=== PATIENT | male | born 1930 | race Caucasian/White ===

== ENCOUNTER 2017-07-18 20:56 | Inpatient (IN) | payer MEDICARE ==
[~2017-07-18] VITALS: Ht 185.4 cm; Wt 59.9 kg
--- NOTE | 2017-07-18 21:40 | EKG ---
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
--- NOTE | 2017-07-18 21:43 | PHYS DOC ---
Adult General Chief Complaint Chief Complaint: PSYCH EVALUATION HPI HPI 86-year-old male custodial patient with a history of dementia now sent for medical clearance for psychiatric admission. Patient has been manifesting some behavioral difficulties including some aggressive behaviors and stealing items per staff Review of Systems Review of Systems Constitutional: Denies fever or chills [] Eyes: Denies change in visual acuity, redness, or eye pain [] HENT: Denies nasal congestion or sore throat [] Respiratory: Denies cough or shortness of breath [] Cardiovascular: No additional information not addressed in HPI [] GI: Denies abdominal pain, nausea, vomiting, bloody stools or diarrhea [] : Denies dysuria or hematuria [] Musculoskeletal: Denies back pain or joint pain [] Integument: Denies rash or skin lesions [] Neurologic: Denies headache, focal weakness or sensory changes [] Endocrine: Denies polyuria or polydipsia [] All other systems were reviewed and found to be within normal limits, except as documented in this note. Physical Exam Physical Exam Constitutional: Elderly male chronically weak appearing, no acute distress, non- toxic appearance. [] HENT: Normocephalic, atraumatic, bilateral external ears normal, oropharynx with very mild dryness, no oral exudates, nose normal. [] Eyes: PERRLA, EOMI, conjunctiva normal, no discharge. [] Neck: Normal range of motion, no tenderness, supple, no stridor. [] Cardiovascular:Heart rate regular rhythm, no murmur [] Lungs & Thorax: Bilateral breath sounds clear to auscultation [] Abdomen: Bowel sounds normal, soft, no tenderness, no masses, no pulsatile masses. [] Skin: Warm, dry, no erythema, no rash. [] Back: No tenderness, no CVA tenderness. [] Extremities: No tenderness, no cyanosis, no clubbing, ROM intact, no edema. [] Neurologic: Alert and oriented X 3, normal motor function, normal sensory function, no focal deficits noted. [] Psychologic: Affect normal, judgement normal, mood normal. [] EKG EKG EKG with normal sinus rhythm approximately 75 bpm. Left axis deviation. Nonspecific ST and T-wave findings. No STEMI. Interpreted by me[] Radiology/Procedures Radiology/Procedures [] Course & Med Decision Making Course & Med Decision Making Pertinent Labs and Imaging studies reviewed. (See chart for details) Patient here for medical clearance for psychiatric evaluation. Workup pending Patient is asymptomatic on reevaluation. He is very pleasant and polite. Workup unremarkable for prerenal azotemia with BUN/creatinine 37 and 1.1. Patient is asymptomatic and 2 L of normal saline were administered. He is willing to drink adequate by mouth fluids and feels he will have no problem doing so. No further workup indicated and patient is medically clear for psychiatric evaluation. [] Dragon Disclaimer Dragon Disclaimer This electronic medical record was generated, in whole or in part, using a voice recognition dictation system. Departure Departure: Impression: Primary Impression: Aggressive behavior of adult Additional Impressions: Prerenal azotemia Mild dehydration Disposition: ADMITTED INPATIENT Admitting Physician: Other Condition: GOOD Referrals: PCP,UNKNOWN (PCP) Problem Qualifiers JULIEN OLEARY MD July 18, 2017 21:43
[2017-07-18] MEDS ORDERED: MEMA10TA PO (21:48)
[2017-07-18] MEDS ORDERED: MELA5TAB PO (21:48)
[2017-07-18] MEDS ORDERED: CYAN10005 PO (21:48)
[2017-07-18] MEDS ORDERED: KRIL1CAP18 PO (21:48)
[2017-07-18] MEDS ORDERED: ASCO250T3 PO (21:48)
[2017-07-18] MEDS ORDERED: DONE10TA7 PO (21:48)
[2017-07-18] MEDS ORDERED: CALC-30 PO (21:48)
[2017-07-18 22:00] LABS: BASO % 1 % (0-3); EOS # 0.1 x10^3/uL (0.0-0.7); EOS % 3 % (0-3); HEMATOCRIT 42.3 % (39.0-53.0); HEMOGLOBIN 14.3 g/dL (13.0-17.5); LYMPH # 0.8 x10^3/uL (1.0-4.8); LYMPH % 16 % (24-48); MEAN CORPUSCULAR HEMOGLOBIN 32 pg (25-35); MEAN CORPUSCULAR HGB CONC 34 g/dL (31-37); MEAN CORPUSCULAR VOLUME 95 fL (79-100); MONO # 0.5 x10^3/uL (0.0-1.1); MONO % 10 % (0-9); NEUT # 3.6 x10^3uL (1.8-7.7); NEUT % 71 % (31-73); PLATELET COUNT 193 x10^3/uL (140-400); RED BLOOD COUNT 4.43 x10^6/uL (4.30-5.70); RED CELL DISTRIBUTION WIDTH 14.4 % (11.5-14.5)
[2017-07-18 22:09] LABS: CALCIUM 8.7 mg/dL (8.5-10.1); CREATININE 1.1 mg/dL (0.7-1.3); GFR 63.2; POTASSIUM 3.9 mmol/L (3.5-5.1)
[2017-07-18 22:36] LABS: BACTERIA,URINE 0 /HPF (0-FEW); BILIRUBIN,URINE NEG (NEG); CLARITY,URINE HAZY; COLOR,URINE YELLOW; GLUCOSE,URINE 100 mg/dL (NEG); NITRITE,URINE NEG (NEG); RBC,URINE OCC /HPF (0-2); SQUAMOUS EPITHELIAL CELL,UR FEW /LPF; UROBILINOGEN,URINE 0.2 mg/dL (0.2 mg/dL)
[2017-07-18 22:37] LABS: SPERM,URINE PRESENT /HPF
[2017-07-18] MEDS ORDERED: IV NORMAL SALINE 1,000ML 1,000 ML IV ONE (23:30)
[2017-07-19] MEDS ORDERED: IV NORMAL SALINE 1,000ML 1,000 ML IV ONE (00:15)
[2017-07-19] MEDS ORDERED: ACETAMINOPHEN 325 MG TABLET PO PRN (01:45)
[2017-07-19] MEDS ORDERED: MAG HYDROX/AL HYDROX/SIMETH 30 ML ORAL.SUSP PO PRN (01:45)
[2017-07-19] MEDS ORDERED: MAGNESIUM HYDROXIDE 2,400 MG/30 ML ORAL.SUSP. PO PRN (01:45)
[2017-07-19] MEDS ORDERED: METHYL SALICYLATE/MENTHOL TOPICAL OINTMENT 29GM TUBE. TP PRN (01:45)
[2017-07-19 02:02] VITALS: BP 123/72
[2017-07-19 02:02] LABS: TOTAL BILIRUBIN 0.9 mg/dL (0.2-1.0)
[2017-07-19 02:15] LABS: ALBUMIN 3.3 g/dL (3.4-5.0); DIRECT BILIRUBIN 0.2 mg/dL (0.0-0.2); MAGNESIUM 1.8 mg/dL (1.8-2.4); TOTAL PROTEIN 6.3 g/dL (6.4-8.2)
[2017-07-19 06:15] VITALS: BP 114/70
[2017-07-19] MEDS: CYANOCOBALAMIN (VITAMIN B-12) 1,000 MCG TABLET. PO SCH (08:35)
[2017-07-19] MEDS: CALCIUM CARB/VIT D3 500/200 TABLET PO SCH (08:35)
[2017-07-19] MEDS: ASCORBIC ACID 500 MG TABLET PO SCH (08:35)
[2017-07-19] MEDS: OMEGA-3 FATTY ACIDS/FISH OIL 1,000 MG CAPSULE. PO SCH (08:35)
[2017-07-19] MEDS: MEMANTINE 10 MG TABLET. PO SCH ×2 (08:35→20:19)
[2017-07-19 14:09] LABS: THYROID STIM HORMONE (TSH) 3.069 uIU/mL (0.358-3.740)
[2017-07-19 16:28] VITALS: BP 126/65
--- NOTE | 2017-07-19 19:19 | HP ---
ADMIT DATE: 07/19/2017 This note covers the elements not covered in my initial note 07/19/2017. SUBJECTIVE: I met with the patient evening of 07/19/2017. Previously discussed with the nursing staff on several occasions to gather referral information from [facility] in [place]. IDENTIFYING DATA: After the patient was getting more confused, agitated, having verbal aggression, attempting to hit people with his cane, stealing from others. He was having sleep and appetite changes, and had failed outpatient psychiatric interventions resulting in this referral. CHIEF COMPLAINT: "I do not remember the name of the [facility]. We only have one at one time. 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 More recently, he has been getting increasingly confused, forgetful, anxious, restless, minimizes being depressed, but mood lability has been significant. He has had sleep and appetite changes. No active suicidal or homicidal ideation, but he has been aggressive as noted above and paranoid. No clear history of bipolar disorder. PAST PSYCHIATRIC HISTORY: As above. MEDICAL HISTORY: Dehydration, B12 deficiency. DRUG ALLERGIES: PENICILLIN. CURRENT PSYCHOTROPICS: Aricept 10 mg a day, melatonin 5 mg at bedtime, and Namenda 10 mg b.i.d. FAMILY HISTORY: Noncontributory. SOCIAL HISTORY: The patient lives at the [facility] in [place]. No alcohol or drug abuse, physical, sexual or elder abuse history is noted. He is not known to be a perpetrator. Reaction to hospitalization, the patient accepting of this. ASSETS: Supportive environment at the [facility]. REVIEW OF SYSTEMS: No CV, , pulmonary, eye, ENT system symptoms on review. Reliability somewhat poor. MENTAL STATUS EXAMINATION: The patient is oriented to himself and situation. He knew it was 07/19/2017. He knew he was in [place]. He was able to do only one step on serial 7's. Attention span short, quite anxious. Speech coherent, rapid at times. Abstraction fair, computation as noted is poor. He is somewhat dysphoric, anxious. No active suicidal or homicidal ideation. Attention span is short. IMPRESSION: Major depressive disorder; anxiety disorder, unspecified, mild cognitive impairment versus major neurocognitive disorder, early vascular with depression. Rest as above. PLAN: Admit to geropsychiatry unit at [facility]. I will see the patient daily individually from a psychiatric standpoint, medical followup per Dr. Rojo/Dr. Ozuna. We will start Zoloft 25 mg a day. Adjust gradually. Estimated length of stay 10 to 12 days. Return back to [facility] at discharge. WILLOW SHETTY MD DR: TANIYA/david JOB#: [id number] / [id number]
[2017-07-19 20:10] LABS: T3 TOTAL 79 ng/dL (71-180); THYROXINE 6.3 ug/dL (4.5-12.0)
--- NOTE | 2017-07-19 20:14 | PDOC ---
Exam Note: Zafar Note: Please also refer to the separate dictated note~for this date of service dictated separately.~Patient seen individually. Discussed the patient with Nursing staff reviewed the chart.~Reviewed interim history and current functioning. Reviewed vital signs,~Labs/ Radiology~and current medications noted below. Continue current treatment with the changes noted in the dictated addendum note Assessment: Vital Signs: Vital Signs Date Time Temp Pulse Resp B/P (MAP) Pulse Ox O2 Delivery O2 Flow Rate FiO2 07/19/17 16:28 97.7 76 22 126/65 (85) 96 07/19/17 02:02 Room Air I&O Intake and Output 07/19/17 07:00 Intake Total 1000 ml Balance 1000 ml IV Total 1000 ml # Voids 1 Labs: Laboratory Tests Test 07/18/17 21:25 White Blood Count 5.0 x10^3/uL (4.0-11.0) Red Blood Count 4.43 x10^6/uL (4.30-5.70) Hemoglobin 14.3 g/dL (13.0-17.5) Hematocrit 42.3 % (39.0-53.0) Mean Corpuscular Volume 95 fL (79-100) Mean Corpuscular Hemoglobin 32 pg (25-35) Mean Corpuscular Hemoglobin Concent 34 g/dL (31-37) Red Cell Distribution Width 14.4 % (11.5-14.5) Platelet Count 193 x10^3/uL (140-400) Neutrophils (%) (Auto) 71 % (31-73) Lymphocytes (%) (Auto) 16 % (24-48) L Monocytes (%) (Auto) 10 % (0-9) H Eosinophils (%) (Auto) 3 % (0-3) Basophils (%) (Auto) 1 % (0-3) Neutrophils # (Auto) 3.6 x10^3uL (1.8-7.7) Lymphocytes # (Auto) 0.8 x10^3/uL (1.0-4.8) L Monocytes # (Auto) 0.5 x10^3/uL (0.0-1.1) Eosinophils # (Auto) 0.1 x10^3/uL (0.0-0.7) Basophils # (Auto) 0.0 x10^3/uL (0.0-0.2) Urine Collection Type Unknown Urine Color Yellow Urine Clarity Hazy Urine pH 5.0 Urine Specific [place] >=1.030 Urine Protein Trace (NEG-TRACE) Urine Glucose (UA) 100 mg/dL (NEG) Urine Ketones (Stick) Neg mg/dL (NEG) Urine Blood Neg (NEG) Urine Nitrite Neg (NEG) Urine Bilirubin Neg (NEG) Urine Urobilinogen Dipstick 0.2 mg/dL (0.2 mg/dL) Urine Leukocyte Esterase Neg (NEG) Urine RBC Occ /HPF (0-2) Urine WBC 1-4 /HPF (0-4) Urine Squamous Epithelial Cells Few /LPF Urine Bacteria 0 /HPF (0-FEW) Urine Mucus Marked /LPF Urine Sperm Present /HPF Sodium Level 143 mmol/L (136-145) Potassium Level 3.9 mmol/L (3.5-5.1) Chloride Level 106 mmol/L (98-107) Carbon Dioxide Level 25 mmol/L (21-32) Anion Gap 12 (6-14) Blood Urea Nitrogen 37 mg/dL (8-26) H Creatinine 1.1 mg/dL (0.7-1.3) Estimated GFR (Cockcroft-Gault) 63.2 Glucose Level 106 mg/dL (70-99) H Calcium Level 8.7 mg/dL (8.5-10.1) Magnesium Level 1.8 mg/dL (1.8-2.4) Iron Level 46 ug/dL (65-175) L Total Iron Binding Capacity 262 ug/dL (250-450) Iron Saturation 18 % (15-34) Total Bilirubin 0.9 mg/dL (0.2-1.0) Direct Bilirubin 0.2 mg/dL (0.0-0.2) Aspartate Amino Transferase (AST) 25 U/L (15-37) Alanine Aminotransferase (ALT) 42 U/L (16-63) Alkaline Phosphatase 64 U/L (46-116) Troponin I Quantitative < 0.017 ng/mL (0-0.055) Total Protein 6.3 g/dL (6.4-8.2) L Albumin 3.3 g/dL (3.4-5.0) L Triglycerides Level 64 mg/dL (0-150) Cholesterol Level 211 mg/dL (0-200) H LDL Cholesterol, Calculated 103 mg/dL (0-100) H VLDL Cholesterol, Calculated 12 mg/dL (0-40) Non-HDL Cholesterol Calculated 115 mg/dL (0-129) HDL Cholesterol 96 mg/dL (40-60) H Cholesterol/HDL Ratio 2.0 Vitamin B12 Level 802 pg/mL (247-911) 25-Hydroxy Vitamin D Total 32.4 ng/mL (30-100) Thyroid Stimulating Hormone (TSH) 3.069 uIU/mL (0.358-3.740) Thyroxine (T4) 6.3 ug/dL (4.5-12.0) Total Triiodothyronine (TT3) 79 ng/dL (71-180) Rapid Plasma Reagin Pending Current Medications: Meds: Current Medications Sodium Chloride 1,000 ml @ 1,000 mls/hr 1X ONCE IV Last administered on at 23:21; Start 07/18/17 at 23:30; Stop 07/19/17 at 00:30; Status DC Sodium Chloride 1,000 ml @ 1,000 mls/hr 1X ONCE IV Last administered on at 00:49; Start 07/19/17 at 00:15; Stop 07/19/17 at 01:14; Status DC Acetaminophen (Tylenol) 650 mg PRN Q6HRS PRN PO PAIN / TEMP; Start 07/19/17 at 01:45 Multi-Ingredient Ointment (Analgesic [place]) 1 rita PRN QID PRN TP MUSCLE PAIN; Start 07/19/17 at 01:45 Al Hydroxide/Mg Hydroxide (Mylanta Plus Xs) 15 ml PRN AFTMEALHC PRN PO DYSPEPSIA; Start 07/19/17 at 01:45 Magnesium Hydroxide (Milk Of Magnesia) 2,400 mg PRN QHS PRN PO CONSTIPATION; Start 07/19/17 at 01:45 Donepezil HCl (Aricept) 10 mg QHS PO ; Start 07/19/17 at 21:00 Melatonin 3 mg PRN QHS PRN PO INSOMNIA; Start 07/19/17 at 02:00 Memantine (Namenda) 10 mg BID PO Last administered on 07/19/17at 08:35; Start at 09:00 Cyanocobalamin (Vitamin B-12) 1,000 mcg DAILY PO Last administered on 08:35; Start 07/19/17 at 09:00 Ascorbic Acid (Vitamin C) 250 mg DAILY PO Last administered on 07/19/17 08:35 ; Start 07/19/17 at 09:00 Calcium/Vitamin D (Oscal D 500mg/ 200uts) 1 tab DAILYWBKFT PO Last administered on 07/19/17 08:35; Start 07/19/17 at 08:00 Fish Oil (Fish Oil) 1,000 mg DAILY PO Last administered on 07/19/17at 08:35; Start 07/19/17 at 09:00 Sertraline HCl (Zoloft) 25 mg DAILY PO ; Start 07/20/17 at 09:00 Active Scripts Active Reported Melatonin 5 Mg Tablet 5 Mg PO HS Namenda (Memantine Hcl) 10 Mg Tablet 10 Mg PO BID Krill Oil 1,000 Mg Softgel (Krill/Om-3/Dha/Epa/Phospho/Ast) 1 Each Capsule 1 Cap PO DAILY Donepezil Hcl 10 Mg Tablet 10 Mg PO HS Vitamin B-12 (Cyanocobalamin (Vitamin B-12)) 1,000 Mcg Tablet 1,000 Mcg PO DAILY Calcium 500 + Vit D 400 Tablet (Calcium Carbonate/Vitamin D3) 1 Each Tablet 1 Tab PO DAILY Ascorbic Acid 250 Mg Tablet 250 Mg PO DAILY I have reviewed the current psychotropics carefully including drug interactions. Risk benefit ratio favors no change other than as noted in my dictated progress note. 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
--- NOTE | 2017-07-19 20:17 | RAD ---
EXAM: Head CT without contrast. HISTORY: Mental status changes. TECHNIQUE: Computed tomographic images of the head were obtained without contrast. *One or more of the following individualized dose reduction techniques were utilized for this examination: 1. Automated exposure control. 2. Adjustment of the mA and/or kV according to patient size. 3. Use of iterative reconstruction technique. COMPARISON: None. FINDINGS: There is no acute or subacute extra-axial or intraparenchymal hemorrhage. There is no mass effect or midline shift. There is no hydrocephalus. There are areas of decreased attenuation within the cerebral white matter, nonspecific and likely related to chronic small vessel disease. There is cerebral atrophy. The visualized portions of the orbits, paranasal sinuses and mastoid air cells are unremarkable. No suspicious calvarial lesion is seen. IMPRESSION: 1. No acute intracranial finding. Note is made that MRI is more sensitive for acute infarction. 2. Decreased attenuation within the cerebral white matter, likely due to chronic small vessel disease. 3. Cerebral atrophy. Electronically signed by: Kayli Moffett MD (07/19/2017 8:14 PM) [facility]
[2017-07-19] MEDS: DONEPEZIL HCL 10 MG TABLET PO SCH (20:20)
[2017-07-19] MEDS: MELATONIN 3 MG TABLET PO PRN (20:20)
--- NOTE | 2017-07-19 21:09 | CONS ---
DATE OF CONSULTATION: 07/19/2017 REASON FOR CONSULTATION: Medical management. HISTORY OF PRESENT ILLNESS: The patient is an 86-year-old male patient, who came from [facility]. He was [facility] on account of increased agitation, verbal aggression, attempting to hit people with his cane, and stealing from others, all this in a background of dementia with behavioral disturbances. PAST MEDICAL HISTORY: Really unremarkable. PAST PSYCHIATRIC HISTORY: Significant for dementia. PAST SURGICAL HISTORY: Significant for tonsillectomy, appendectomy, and pacemaker placement. ALLERGIES: He is allergic to PENICILLIN. MEDICATIONS: He is currently on the following medications: He is on Aricept 10 mg at bedtime, Namenda 10 mg twice a day, calcium carbonate with vitamin D3 one tablet once a day. He is on cyanocobalamin 1000 mcg once a day, ascorbic acid 250 mg once a day, Krill oil 1 capsule daily and melatonin 5 mg at bedtime. FAMILY HISTORY: He is one of 6 siblings. His sister, younger recently. SOCIAL HISTORY: He does not smoke, drink alcohol or use any recreational drugs. REVIEW OF SYSTEMS: As per history of present illness. PHYSICAL EXAMINATION GENERAL: When I examined him today, he looked well and was clearly in no apparent respiratory distress, pale, somewhat cachectic, but no jaundice or cyanosis. No lymphadenopathy, no thyromegaly. No jugular venous distension. No limb edema. VITAL SIGNS: His heart rate was 76, blood pressure was 126/65, temperature was 97.7, respiratory rate was 22 and oxygen saturation was 96%. HEAD, EYES, EARS, NOSE, and THROAT: Showed normocephalic, atraumatic. NECK: Supple. HEART: Showed normal first and second heart sounds. No gallop, rub or murmur. CHEST: Clear to auscultation. No crepitation or rhonchi. ABDOMEN: Distended, soft, nontender. NEUROLOGIC: He is awake, alert, responding appropriately. All his cranial nerves are intact. EXTREMITIES: He moves extremities without difficulty. He ambulates without assistance or assistive devices, although he uses a cane normally at his place. LABORATORY DATA: His lab work showed a serum sodium 143, potassium 3.9, chloride 106, bicarbonate 25, anion gap of 12, BUN 37, creatinine 1.1, estimated GFR was 63 mL per minute. His glucose was 106, calcium was 8.7. His magnesium was 1.8. Total bilirubin, AST, ALT, and alkaline phosphatase were normal. Total protein was 6.3, albumin was 3.3. His serum iron was 46, TIBC was 262 and percent saturation was 18%. Serum triglycerides were 64, total cholesterol was 101, LDL cholesterol was 103, VLDL was 12, HDL cholesterol was 96 and the ratio was 2. His vitamin B12 was 800 pg/mL, 25-hydroxyvitamin D was ____. TSH was normal at 3.069. His white cell count was 5000, hemoglobin 14, hematocrit 42, MCV 95 and platelet count of 193,000 with a manual differential showed 71% polymorphs, 16% lymphocytes and 10% monocytes. His urinalysis showed the urine was yellow, hazy with a pH of 5, specific gravity of 1.030. There was a trace of protein. There was also some glycosuria. However, the urine was negative for ketones, blood, nitrite and leukocyte esterase with no rbc's, 1-4 wbc's, and no bacteria. ASSESSMENT AND PLAN: So all in all, this is an 86-year-old male patient, who seems to be medically very healthy and essentially has no medical problem except perhaps some mild impairment of his kidney function, mild protein calorie malnutrition. Otherwise, all his lab works are within acceptable ranges. His vital signs are stable. I will definitely continue on all these medications, and I will review all the lab works that are still pending and make any necessary recommendation. Thank you, Dr. Lundberg for allowing me to participate in the care of this patient. RULA VILCHIS MD DR: PRUDENCE/david JOB#: [id number] / [id number]
[2017-07-20 01:09] LABS: HEMOGLOBIN A1C 4.9 % (4.8-5.6)
[2017-07-20 05:55] VITALS: BP 132/73
[2017-07-20] MEDS: CYANOCOBALAMIN (VITAMIN B-12) 1,000 MCG TABLET. PO SCH (08:41)
[2017-07-20] MEDS: OMEGA-3 FATTY ACIDS/FISH OIL 1,000 MG CAPSULE. PO SCH (08:41)
[2017-07-20] MEDS: CALCIUM CARB/VIT D3 500/200 TABLET PO SCH (08:41)
[2017-07-20] MEDS: MEMANTINE 10 MG TABLET. PO SCH ×2 (08:41→19:44)
[2017-07-20] MEDS: ASCORBIC ACID 500 MG TABLET PO SCH (08:41)
[2017-07-20] MEDS: SERTRALINE 25 MG TABLET. PO SCH (08:42)
[2017-07-20 18:11] VITALS: BP 131/75
[2017-07-20] MEDS: DONEPEZIL HCL 10 MG TABLET PO SCH (19:44)
--- NOTE | 2017-07-20 22:04 | PDOC ---
Exam Note: Zafar Note: Please also refer to the separate dictated note~for this date of service dictated separately.~Patient seen individually. Discussed the patient with Nursing staff reviewed the chart.~Reviewed interim history and current functioning. Reviewed vital signs,~Labs/ Radiology~and current medications noted below. Continue current treatment with the changes noted in the dictated addendum note Assessment: Vital Signs: Vital Signs Date Time Temp Pulse Resp B/P (MAP) Pulse Ox O2 Delivery O2 Flow Rate FiO2 07/20/17 18:11 98.1 66 18 131/75 (93) 98 07/19/17 02:02 Room Air I&O Intake and Output 07/20/17 07:00 Intake Total 600 ml Balance 600 ml Intake Oral 600 ml # Voids 1 # Bowel Movements 1 Current Medications: Meds: Current Medications Sodium Chloride 1,000 ml @ 1,000 mls/hr 1X ONCE IV Last administered on at 23:21; Start 07/18/17 at 23:30; Stop 07/19/17 at 00:30; Status DC Sodium Chloride 1,000 ml @ 1,000 mls/hr 1X ONCE IV Last administered on at 00:49; Start 07/19/17 at 00:15; Stop 07/19/17 at 01:14; Status DC Acetaminophen (Tylenol) 650 mg PRN Q6HRS PRN PO PAIN / TEMP; Start 07/19/17 at 01:45 Multi-Ingredient Ointment (Analgesic [place]) 1 rita PRN QID PRN TP MUSCLE PAIN; Start 07/19/17 at 01:45 Al Hydroxide/Mg Hydroxide (Mylanta Plus Xs) 15 ml PRN AFTMEALHC PRN PO DYSPEPSIA; Start 07/19/17 at 01:45 Magnesium Hydroxide (Milk Of Magnesia) 2,400 mg PRN QHS PRN PO CONSTIPATION; Start 07/19/17 at 01:45 Donepezil HCl (Aricept) 10 mg QHS PO Last administered on 07/20/17at 19:44; Start 07/19/17 at 21:00 Melatonin 3 mg PRN QHS PRN PO INSOMNIA Last administered on 07/19/17at 20:20; Start 07/19/17 at 02:00 Memantine (Namenda) 10 mg BID PO Last administered on 5/16/18at 19:44; Start at 09:00 Cyanocobalamin (Vitamin B-12) 1,000 mcg DAILY PO Last administered on 08:41; Start 07/19/17 at 09:00 Ascorbic Acid (Vitamin C) 250 mg DAILY PO Last administered on 07/20/17 08:41 ; Start 07/19/17 at 09:00 Calcium/Vitamin D (Oscal D 500mg/ 200uts) 1 tab DAILYWBKFT PO Last administered on 07/20/17 08:41; Start 07/19/17 at 08:00 Fish Oil (Fish Oil) 1,000 mg DAILY PO Last administered on 07/20/17 08:41; Start 07/19/17 at 09:00 Sertraline HCl (Zoloft) 25 mg DAILY PO Last administered on 07/20/17 08:42; Start 07/20/17 at 09:00 Active Scripts Active Reported Melatonin 5 Mg Tablet 5 Mg PO HS Namenda (Memantine Hcl) 10 Mg Tablet 10 Mg PO BID Krill Oil 1,000 Mg Softgel (Krill/Om-3/Dha/Epa/Phospho/Ast) 1 Each Capsule 1 Cap PO DAILY Donepezil Hcl 10 Mg Tablet 10 Mg PO HS Vitamin B-12 (Cyanocobalamin (Vitamin B-12)) 1,000 Mcg Tablet 1,000 Mcg PO DAILY Calcium 500 + Vit D 400 Tablet (Calcium Carbonate/Vitamin D3) 1 Each Tablet 1 Tab PO DAILY Ascorbic Acid 250 Mg Tablet 250 Mg PO DAILY I have reviewed the current psychotropics carefully including drug interactions. Risk benefit ratio favors no change other than as noted in my dictated progress note. 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
[2017-07-21 05:53] VITALS: BP 116/74
[2017-07-21] MEDS: CYANOCOBALAMIN (VITAMIN B-12) 1,000 MCG TABLET. PO SCH (08:02)
[2017-07-21] MEDS: OMEGA-3 FATTY ACIDS/FISH OIL 1,000 MG CAPSULE. PO SCH (08:02)
[2017-07-21] MEDS: CALCIUM CARB/VIT D3 500/200 TABLET PO SCH (08:03)
[2017-07-21] MEDS: ASCORBIC ACID 500 MG TABLET PO SCH (08:03)
[2017-07-21] MEDS: MEMANTINE 10 MG TABLET. PO SCH ×2 (08:03→20:39)
[2017-07-21] MEDS: SERTRALINE 25 MG TABLET. PO SCH (08:03)
[2017-07-21 16:31] VITALS: BP 133/73
--- NOTE | 2017-07-21 20:11 | PDOC ---
Exam Note: Zafar Note: Please also refer to the separate dictated note~for this date of service dictated separately.~Patient seen individually. Discussed the patient with Nursing staff reviewed the chart.~Reviewed interim history and current functioning. Reviewed vital signs,~Labs/ Radiology~and current medications noted below. Continue current treatment with the changes noted in the dictated addendum note Assessment: Vital Signs: Vital Signs Date Time Temp Pulse Resp B/P (MAP) Pulse Ox O2 Delivery O2 Flow Rate FiO2 07/21/17 16:31 97.9 65 16 133/73 (93) 100 Room Air I&O Intake and Output 07/21/17 07:00 Intake Total 720 ml Balance 720 ml Intake Oral 720 ml Current Medications: Meds: Current Medications Sodium Chloride 1,000 ml @ 1,000 mls/hr 1X ONCE IV Last administered on at 23:21; Start 07/18/17 at 23:30; Stop 07/19/17 at 00:30; Status DC Sodium Chloride 1,000 ml @ 1,000 mls/hr 1X ONCE IV Last administered on at 00:49; Start 07/19/17 at 00:15; Stop 07/19/17 at 01:14; Status DC Acetaminophen (Tylenol) 650 mg PRN Q6HRS PRN PO PAIN / TEMP; Start 07/19/17 at 01:45 Multi-Ingredient Ointment (Analgesic [place]) 1 rita PRN QID PRN TP MUSCLE PAIN; Start 07/19/17 at 01:45 Al Hydroxide/Mg Hydroxide (Mylanta Plus Xs) 15 ml PRN AFTMEALHC PRN PO DYSPEPSIA; Start 07/19/17 at 01:45 Magnesium Hydroxide (Milk Of Magnesia) 2,400 mg PRN QHS PRN PO CONSTIPATION; Start 07/19/17 at 01:45 Donepezil HCl (Aricept) 10 mg QHS PO Last administered on 07/20/17at 19:44; Start 07/19/17 at 21:00 Melatonin 3 mg PRN QHS PRN PO INSOMNIA Last administered on 07/19/17at 20:20; Start 07/19/17 at 02:00 Memantine (Namenda) 10 mg BID PO Last administered on 07/21/17at 08:03; Start at 09:00 Cyanocobalamin (Vitamin B-12) 1,000 mcg DAILY PO Last administered on at 08:02; Start 07/19/17 at 09:00 Ascorbic Acid (Vitamin C) 250 mg DAILY PO Last administered on 07/21/17at 08:03 ; Start 07/19/17 at 09:00 Calcium/Vitamin D (Oscal D 500mg/ 200uts) 1 tab DAILYWBKFT PO Last administered on 07/21/17at 08:03; Start 07/19/17 at 08:00 Fish Oil (Fish Oil) 1,000 mg DAILY PO Last administered on 07/21/17at 08:02; Start 07/19/17 at 09:00 Sertraline HCl (Zoloft) 25 mg DAILY PO Last administered on 07/21/17at 08:03; Start 07/20/17 at 09:00; Stop 07/23/17 at 08:59 Sertraline HCl (Zoloft) 50 mg DAILY PO ; Start 07/23/17 at 09:00 Active Scripts Active Reported Melatonin 5 Mg Tablet 5 Mg PO HS Namenda (Memantine Hcl) 10 Mg Tablet 10 Mg PO BID Krill Oil 1,000 Mg Softgel (Krill/Om-3/Dha/Epa/Phospho/Ast) 1 Each Capsule 1 Cap PO DAILY Donepezil Hcl 10 Mg Tablet 10 Mg PO HS Vitamin B-12 (Cyanocobalamin (Vitamin B-12)) 1,000 Mcg Tablet 1,000 Mcg PO DAILY Calcium 500 + Vit D 400 Tablet (Calcium Carbonate/Vitamin D3) 1 Each Tablet 1 Tab PO DAILY Ascorbic Acid 250 Mg Tablet 250 Mg PO DAILY I have reviewed the current psychotropics carefully including drug interactions. Risk benefit ratio favors no change other than as noted in my dictated progress note. 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
[2017-07-21] MEDS: DONEPEZIL HCL 10 MG TABLET PO SCH (20:39)
[2017-07-22 05:34] VITALS: BP 141/95
[2017-07-22] MEDS: ASCORBIC ACID 500 MG TABLET PO SCH (08:06)
[2017-07-22] MEDS: OMEGA-3 FATTY ACIDS/FISH OIL 1,000 MG CAPSULE. PO SCH (08:06)
[2017-07-22] MEDS: CYANOCOBALAMIN (VITAMIN B-12) 1,000 MCG TABLET. PO SCH (08:07)
[2017-07-22] MEDS: CALCIUM CARB/VIT D3 500/200 TABLET PO SCH (08:07)
[2017-07-22] MEDS: MEMANTINE 10 MG TABLET. PO SCH ×2 (08:07→20:08)
[2017-07-22] MEDS: SERTRALINE 25 MG TABLET. PO SCH (08:07)
[2017-07-22 16:13] VITALS: BP 100/53
[2017-07-22] MEDS: DONEPEZIL 23 MG TABLET PO SCH (20:28)
--- NOTE | 2017-07-23 01:44 | PN ---
DATE: 07/20/2017 This is a late entry for 07/20/2017 covers elements not covered in my initial note of 07/20/2017. SUBJECTIVE: I met with the patient in the evening of 07/20/2017 and staffed at a treatment team meeting during the day. Reviewed the patient's history, diagnosis at the treatment team meeting, progress, current psychotropics. The patient has; otherwise, been somewhat withdrawn, short-term memory deficits. REVIEW OF SYSTEMS: No CV, , pulmonary, eye, ENT system symptoms on review. Reliability poor. MENTAL STATUS EXAM: Oriented to himself and situation. Speech has some latency, coherent. Abstraction fair, computation impaired, language function intact. Mood and affect somewhat withdrawn at times. LABORATORY DATA: Reviewed. IMPRESSION: Major neurocognitive disorder, Alzheimer, vascular with delusion, depression, behavioral disturbance. Rest unchanged. PLAN: Continue current psychotropics. Zoloft was initiated and will be adjusted gradually. WILLOW SHETTY MD DR: TANIYA/david JOB#: [id number] / [id number]
--- NOTE | 2017-07-23 03:15 | PN ---
DATE: 07/21/2017 This late entry 07/21/2017 covers elements not covered in my initial note 07/21/2017. I met with the patient in the evening. The patient slept 6-1/2 hours. He is quite forgetful, but redirectable, agitated in the morning, somewhat preoccupied and obsessive later in the day. REVIEW OF SYSTEMS: No CV, , pulmonary, eye, ENT system symptoms on review. Reliability poor. MENTAL STATUS EXAM: Oriented to himself and situation. Speech coherent, abstraction fair, computation impaired, language function intact. Mood and affect still somewhat withdrawn, has trouble swallowing his medications. IMPRESSION: Unchanged from initial note. PLAN: Continue current psychotropics. Adjust further as clinically indicated. CT head shows microvascular changes. MAN Pardepe SHETTY MD DR: TANIYA/david JOB#: [id number] / [id number]
[2017-07-23 06:04] VITALS: BP 129/75
[2017-07-23] MEDS: CALCIUM CARB/VIT D3 500/200 TABLET PO SCH (08:24)
[2017-07-23] MEDS: MEMANTINE 10 MG TABLET. PO SCH ×2 (08:34→20:06)
[2017-07-23] MEDS: CYANOCOBALAMIN (VITAMIN B-12) 1,000 MCG TABLET. PO SCH (08:34)
[2017-07-23] MEDS: ASCORBIC ACID 500 MG TABLET PO SCH (08:35)
[2017-07-23] MEDS: SERTRALINE 50 MG TABLET. PO SCH (08:35)
[2017-07-23 09:45] LABS: BASO % 1 % (0-3); EOS # 0.1 x10^3/uL (0.0-0.7); EOS % 4 % (0-3); HEMATOCRIT 43.4 % (39.0-53.0); HEMOGLOBIN 14.7 g/dL (13.0-17.5); LYMPH # 0.9 x10^3/uL (1.0-4.8); LYMPH % 25 % (24-48); MEAN CORPUSCULAR HEMOGLOBIN 32 pg (25-35); MEAN CORPUSCULAR HGB CONC 34 g/dL (31-37); MEAN CORPUSCULAR VOLUME 96 fL (79-100); MONO # 0.3 x10^3/uL (0.0-1.1); MONO % 7 % (0-9); NEUT # 2.3 x10^3uL (1.8-7.7); NEUT % 64 % (31-73); PLATELET COUNT 204 x10^3/uL (140-400); RED BLOOD COUNT 4.54 x10^6/uL (4.30-5.70); RED CELL DISTRIBUTION WIDTH 14.3 % (11.5-14.5); WHITE BLOOD COUNT 3.6 x10^3/uL (4.0-11.0)
[2017-07-23 09:59] LABS: ALBUMIN 3.2 g/dL (3.4-5.0); ALBUMIN/GLOBULIN RATIO 1.1 (1.0-1.7); CALCIUM 9.1 mg/dL (8.5-10.1); CREATININE 1.1 mg/dL (0.7-1.3); GFR 63.2; POTASSIUM 3.8 mmol/L (3.5-5.1); TOTAL BILIRUBIN 1.5 mg/dL (0.2-1.0); TOTAL PROTEIN 6.2 g/dL (6.4-8.2)
[2017-07-23 16:32] VITALS: BP 118/66
[2017-07-23] MEDS: DONEPEZIL 23 MG TABLET PO SCH (20:06)
--- NOTE | 2017-07-23 22:35 | PDOC ---
Exam Note: Zafar Note: Late entry for date of service July 22, 2017. Please also refer to the separate dictated note~for this date of service dictated separately.~Patient seen individually. Discussed the patient with Nursing staff reviewed the chart.~ Reviewed interim history and current functioning. Reviewed vital signs,~Labs/ Radiology~and current medications noted below. Continue current treatment with the changes noted in the dictated addendum note Assessment: Vital Signs: VS - Last 72 Hours, by Label Date Time Temp Pulse Resp B/P (MAP) Pulse Ox O2 Delivery O2 Flow Rate FiO2 07/23/17 16:32 98.1 77 20 118/66 (83) 96 07/23/17 06:04 97.8 79 14 129/75 (93) 95 07/22/17 16:13 97.6 67 18 100/53 (69) 98 07/22/17 05:34 97.5 80 18 141/95 (110) 97 Room Air 07/21/17 16:31 97.9 65 16 133/73 (93) 100 Room Air 07/21/17 05:53 97.7 69 20 116/74 (88) 95 Vital Signs Date Time Temp Pulse Resp B/P (MAP) Pulse Ox O2 Delivery O2 Flow Rate FiO2 07/23/17 16:32 98.1 77 20 118/66 (83) 96 07/22/17 05:34 Room Air I&O Intake and Output 07/23/17 07:00 Intake Total 1200 ml Balance 1200 ml Intake Oral 1200 ml Labs: Laboratory Tests Test 07/23/17 09:15 White Blood Count 3.6 x10^3/uL (4.0-11.0) L Red Blood Count 4.54 x10^6/uL (4.30-5.70) Hemoglobin 14.7 g/dL (13.0-17.5) Hematocrit 43.4 % (39.0-53.0) Mean Corpuscular Volume 96 fL (79-100) Mean Corpuscular Hemoglobin 32 pg (25-35) Mean Corpuscular Hemoglobin Concent 34 g/dL (31-37) Red Cell Distribution Width 14.3 % (11.5-14.5) Platelet Count 204 x10^3/uL (140-400) Neutrophils (%) (Auto) 64 % (31-73) Lymphocytes (%) (Auto) 25 % (24-48) Monocytes (%) (Auto) 7 % (0-9) Eosinophils (%) (Auto) 4 % (0-3) H Basophils (%) (Auto) 1 % (0-3) Neutrophils # (Auto) 2.3 x10^3uL (1.8-7.7) Lymphocytes # (Auto) 0.9 x10^3/uL (1.0-4.8) L Monocytes # (Auto) 0.3 x10^3/uL (0.0-1.1) Eosinophils # (Auto) 0.1 x10^3/uL (0.0-0.7) Basophils # (Auto) 0.0 x10^3/uL (0.0-0.2) Sodium Level 139 mmol/L (136-145) Potassium Level 3.8 mmol/L (3.5-5.1) Chloride Level 103 mmol/L (98-107) Carbon Dioxide Level 30 mmol/L (21-32) Anion Gap 6 (6-14) Blood Urea Nitrogen 24 mg/dL (8-26) Creatinine 1.1 mg/dL (0.7-1.3) Estimated GFR (Cockcroft-Gault) 63.2 BUN/Creatinine Ratio 22 (6-20) H Glucose Level 147 mg/dL (70-99) H Calcium Level 9.1 mg/dL (8.5-10.1) Total Bilirubin 1.5 mg/dL (0.2-1.0) H Aspartate Amino Transferase (AST) 16 U/L (15-37) Alanine Aminotransferase (ALT) 38 U/L (16-63) Alkaline Phosphatase 63 U/L (46-116) Total Protein 6.2 g/dL (6.4-8.2) L Albumin 3.2 g/dL (3.4-5.0) L Albumin/Globulin Ratio 1.1 (1.0-1.7) Current Medications: Meds: Current Medications Sodium Chloride 1,000 ml @ 1,000 mls/hr 1X ONCE IV Last administered on at 23:21; Start 07/18/17 at 23:30; Stop 07/19/17 at 00:30; Status DC Sodium Chloride 1,000 ml @ 1,000 mls/hr 1X ONCE IV Last administered on at 00:49; Start 07/19/17 at 00:15; Stop 07/19/17 at 01:14; Status DC Acetaminophen (Tylenol) 650 mg PRN Q6HRS PRN PO PAIN / TEMP; Start 07/19/17 at 01:45 Multi-Ingredient Ointment (Analgesic [place]) 1 rita PRN QID PRN TP MUSCLE PAIN; Start 07/19/17 at 01:45 Al Hydroxide/Mg Hydroxide (Mylanta Plus Xs) 15 ml PRN AFTMEALHC PRN PO DYSPEPSIA; Start 07/19/17 at 01:45 Magnesium Hydroxide (Milk Of Magnesia) 2,400 mg PRN QHS PRN PO CONSTIPATION; Start 07/19/17 at 01:45 Donepezil HCl (Aricept) 10 mg QHS PO Last administered on 07/21/17at 20:39; Start 07/19/17 at 21:00; Stop 07/22/17 at 19:52; Status DC Melatonin 3 mg PRN QHS PRN PO INSOMNIA Last administered on 07/19/17at 20:20; Start 07/19/17 at 02:00 Memantine (Namenda) 10 mg BID PO Last administered on 07/23/17at 20:06; Start at 09:00 Cyanocobalamin (Vitamin B-12) 1,000 mcg DAILY PO Last administered on at 08:34; Start 07/19/17 at 09:00 Ascorbic Acid (Vitamin C) 250 mg DAILY PO Last administered on 07/23/17at 08:35 ; Start 07/19/17 at 09:00 Calcium/Vitamin D (Oscal D 500mg/ 200uts) 1 tab DAILYWBKFT PO Last administered on 07/23/17at 08:24; Start 07/19/17 at 08:00 Fish Oil (Fish Oil) 1,000 mg DAILY PO Last administered on 07/22/17at 08:06; Start 07/19/17 at 09:00; Stop 07/22/17 at 19:06; Status DC Sertraline HCl (Zoloft) 25 mg DAILY PO Last administered on 07/22/17at 08:07; Start 07/20/17 at 09:00; Stop 07/23/17 at 08:59; Status DC Sertraline HCl (Zoloft) 50 mg DAILY PO Last administered on 07/23/17at 08:35; Start 07/23/17 at 09:00 Donepezil HCl (Aricept) 23 mg QHS PO Last administered on 07/23/17at 20:06; Start 07/22/17 at 21:00 Active Scripts Active Reported Melatonin 5 Mg Tablet 5 Mg PO HS Namenda (Memantine Hcl) 10 Mg Tablet 10 Mg PO BID Krill Oil 1,000 Mg Softgel (Krill/Om-3/Dha/Epa/Phospho/Ast) 1 Each Capsule 1 Cap PO DAILY Donepezil Hcl 10 Mg Tablet 10 Mg PO HS Vitamin B-12 (Cyanocobalamin (Vitamin B-12)) 1,000 Mcg Tablet 1,000 Mcg PO DAILY Calcium 500 + Vit D 400 Tablet (Calcium Carbonate/Vitamin D3) 1 Each Tablet 1 Tab PO DAILY Ascorbic Acid 250 Mg Tablet 250 Mg PO DAILY I have reviewed the current psychotropics carefully including drug interactions. Risk benefit ratio favors no change other than as noted in my dictated progress note. 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
--- NOTE | 2017-07-23 23:09 | PDOC ---
Exam Note: Zafar Note: Please also refer to the separate dictated note~for this date of service dictated separately.~Patient seen individually. Discussed the patient with Nursing staff reviewed the chart.~Reviewed interim history and current functioning. Reviewed vital signs,~Labs/ Radiology~and current medications noted below. Continue current treatment with the changes noted in the dictated addendum note Assessment: Vital Signs: Vital Signs Date Time Temp Pulse Resp B/P (MAP) Pulse Ox O2 Delivery O2 Flow Rate FiO2 07/23/17 16:32 98.1 77 20 118/66 (83) 96 07/22/17 05:34 Room Air I&O Intake and Output 07/23/17 07:00 Intake Total 1200 ml Balance 1200 ml Intake Oral 1200 ml Labs: Laboratory Tests Test 07/23/17 09:15 White Blood Count 3.6 x10^3/uL (4.0-11.0) L Red Blood Count 4.54 x10^6/uL (4.30-5.70) Hemoglobin 14.7 g/dL (13.0-17.5) Hematocrit 43.4 % (39.0-53.0) Mean Corpuscular Volume 96 fL (79-100) Mean Corpuscular Hemoglobin 32 pg (25-35) Mean Corpuscular Hemoglobin Concent 34 g/dL (31-37) Red Cell Distribution Width 14.3 % (11.5-14.5) Platelet Count 204 x10^3/uL (140-400) Neutrophils (%) (Auto) 64 % (31-73) Lymphocytes (%) (Auto) 25 % (24-48) Monocytes (%) (Auto) 7 % (0-9) Eosinophils (%) (Auto) 4 % (0-3) H Basophils (%) (Auto) 1 % (0-3) Neutrophils # (Auto) 2.3 x10^3uL (1.8-7.7) Lymphocytes # (Auto) 0.9 x10^3/uL (1.0-4.8) L Monocytes # (Auto) 0.3 x10^3/uL (0.0-1.1) Eosinophils # (Auto) 0.1 x10^3/uL (0.0-0.7) Basophils # (Auto) 0.0 x10^3/uL (0.0-0.2) Sodium Level 139 mmol/L (136-145) Potassium Level 3.8 mmol/L (3.5-5.1) Chloride Level 103 mmol/L (98-107) Carbon Dioxide Level 30 mmol/L (21-32) Anion Gap 6 (6-14) Blood Urea Nitrogen 24 mg/dL (8-26) Creatinine 1.1 mg/dL (0.7-1.3) Estimated GFR (Cockcroft-Gault) 63.2 BUN/Creatinine Ratio 22 (6-20) H Glucose Level 147 mg/dL (70-99) H Calcium Level 9.1 mg/dL (8.5-10.1) Total Bilirubin 1.5 mg/dL (0.2-1.0) H Aspartate Amino Transferase (AST) 16 U/L (15-37) Alanine Aminotransferase (ALT) 38 U/L (16-63) Alkaline Phosphatase 63 U/L (46-116) Total Protein 6.2 g/dL (6.4-8.2) L Albumin 3.2 g/dL (3.4-5.0) L Albumin/Globulin Ratio 1.1 (1.0-1.7) Current Medications: Meds: Current Medications Sodium Chloride 1,000 ml @ 1,000 mls/hr 1X ONCE IV Last administered on at 23:21; Start 07/18/17 at 23:30; Stop 07/19/17 at 00:30; Status DC Sodium Chloride 1,000 ml @ 1,000 mls/hr 1X ONCE IV Last administered on at 00:49; Start 07/19/17 at 00:15; Stop 07/19/17 at 01:14; Status DC Acetaminophen (Tylenol) 650 mg PRN Q6HRS PRN PO PAIN / TEMP; Start 07/19/17 at 01:45 Multi-Ingredient Ointment (Analgesic [place]) 1 rita PRN QID PRN TP MUSCLE PAIN; Start 07/19/17 at 01:45 Al Hydroxide/Mg Hydroxide (Mylanta Plus Xs) 15 ml PRN AFTMEALHC PRN PO DYSPEPSIA; Start 07/19/17 at 01:45 Magnesium Hydroxide (Milk Of Magnesia) 2,400 mg PRN QHS PRN PO CONSTIPATION; Start 07/19/17 at 01:45 Donepezil HCl (Aricept) 10 mg QHS PO Last administered on 07/21/17 20:39; Start 07/19/17 at 21:00; Stop 07/22/17 at 19:52; Status DC Melatonin 3 mg PRN QHS PRN PO INSOMNIA Last administered on 07/19/17 20:20; Start 07/19/17 at 02:00 Memantine (Namenda) 10 mg BID PO Last administered on 07/23/17at 20:06; Start at 09:00 Cyanocobalamin (Vitamin B-12) 1,000 mcg DAILY PO Last administered on at 08:34; Start 07/19/17 at 09:00 Ascorbic Acid (Vitamin C) 250 mg DAILY PO Last administered on 07/23/17 08:35 ; Start 07/19/17 at 09:00 Calcium/Vitamin D (Oscal D 500mg/ 200uts) 1 tab DAILYWBKFT PO Last administered on 07/23/17at 08:24; Start 07/19/17 at 08:00 Fish Oil (Fish Oil) 1,000 mg DAILY PO Last administered on 07/22/17 08:06; Start 07/19/17 at 09:00; Stop 07/22/17 at 19:06; Status DC Sertraline HCl (Zoloft) 25 mg DAILY PO Last administered on 07/22/17 08:07; Start 07/20/17 at 09:00; Stop 07/23/17 at 08:59; Status DC Sertraline HCl (Zoloft) 50 mg DAILY PO Last administered on 07/23/17at 08:35; Start 07/23/17 at 09:00 Donepezil HCl (Aricept) 23 mg QHS PO Last administered on 07/23/17at 20:06; Start 07/22/17 at 21:00 Active Scripts Active Reported Melatonin 5 Mg Tablet 5 Mg PO HS Namenda (Memantine Hcl) 10 Mg Tablet 10 Mg PO BID Krill Oil 1,000 Mg Softgel (Krill/Om-3/Dha/Epa/Phospho/Ast) 1 Each Capsule 1 Cap PO DAILY Donepezil Hcl 10 Mg Tablet 10 Mg PO HS Vitamin B-12 (Cyanocobalamin (Vitamin B-12)) 1,000 Mcg Tablet 1,000 Mcg PO DAILY Calcium 500 + Vit D 400 Tablet (Calcium Carbonate/Vitamin D3) 1 Each Tablet 1 Tab PO DAILY Ascorbic Acid 250 Mg Tablet 250 Mg PO DAILY I have reviewed the current psychotropics carefully including drug interactions. Risk benefit ratio favors no change other than as noted in my dictated progress note. 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
[2017-07-24 05:56] VITALS: BP 128/66
[2017-07-24] MEDS: MEMANTINE 10 MG TABLET. PO SCH ×2 (08:33→20:09)
[2017-07-24] MEDS: CALCIUM CARB/VIT D3 500/200 TABLET PO SCH (08:33)
[2017-07-24] MEDS: CYANOCOBALAMIN (VITAMIN B-12) 1,000 MCG TABLET. PO SCH (08:33)
[2017-07-24] MEDS: SERTRALINE 50 MG TABLET. PO SCH (08:34)
[2017-07-24] MEDS: ASCORBIC ACID 500 MG TABLET PO SCH (08:34)
[2017-07-24 15:36] VITALS: BP 115/72
[2017-07-24] MEDS: DONEPEZIL 23 MG TABLET PO SCH (20:09)
--- NOTE | 2017-07-24 20:42 | PDOC ---
Exam Note: Zafar Note: Please also refer to the separate dictated note~for this date of service dictated separately.~Patient seen individually. Discussed the patient with Nursing staff reviewed the chart.~Reviewed interim history and current functioning. Reviewed vital signs,~Labs/ Radiology~and current medications noted below. Continue current treatment with the changes noted in the dictated addendum note Assessment: Vital Signs: Vital Signs Date Time Temp Pulse Resp B/P (MAP) Pulse Ox O2 Delivery O2 Flow Rate FiO2 07/24/17 15:36 98.1 70 16 115/72 (86) 95 07/22/17 05:34 Room Air I&O Intake and Output 07/24/17 07:00 Intake Total 540 ml Balance 540 ml Intake Oral 540 ml Current Medications: Meds: Current Medications Sodium Chloride 1,000 ml @ 1,000 mls/hr 1X ONCE IV Last administered on at 23:21; Start 07/18/17 at 23:30; Stop 07/19/17 at 00:30; Status DC Sodium Chloride 1,000 ml @ 1,000 mls/hr 1X ONCE IV Last administered on at 00:49; Start 07/19/17 at 00:15; Stop 07/19/17 at 01:14; Status DC Acetaminophen (Tylenol) 650 mg PRN Q6HRS PRN PO PAIN / TEMP; Start 07/19/17 at 01:45 Multi-Ingredient Ointment (Analgesic [place]) 1 rita PRN QID PRN TP MUSCLE PAIN; Start 07/19/17 at 01:45 Al Hydroxide/Mg Hydroxide (Mylanta Plus Xs) 15 ml PRN AFTMEALHC PRN PO DYSPEPSIA; Start 07/19/17 at 01:45 Magnesium Hydroxide (Milk Of Magnesia) 2,400 mg PRN QHS PRN PO CONSTIPATION; Start 07/19/17 at 01:45 Donepezil HCl (Aricept) 10 mg QHS PO Last administered on 07/21/17at 20:39; Start 07/19/17 at 21:00; Stop 07/22/17 at 19:52; Status DC Melatonin 3 mg PRN QHS PRN PO INSOMNIA Last administered on 07/19/17at 20:20; Start 07/19/17 at 02:00 Memantine (Namenda) 10 mg BID PO Last administered on 07/24/17 20:09; Start at 09:00 Cyanocobalamin (Vitamin B-12) 1,000 mcg DAILY PO Last administered on 08:33; Start 07/19/17 at 09:00 Ascorbic Acid (Vitamin C) 250 mg DAILY PO Last administered on 07/24/17 08:34 ; Start 07/19/17 at 09:00 Calcium/Vitamin D (Oscal D 500mg/ 200uts) 1 tab DAILYWBKFT PO Last administered on 07/24/17 08:33; Start 07/19/17 at 08:00 Fish Oil (Fish Oil) 1,000 mg DAILY PO Last administered on 07/22/17 08:06; Start 07/19/17 at 09:00; Stop 07/22/17 at 19:06; Status DC Sertraline HCl (Zoloft) 25 mg DAILY PO Last administered on 07/22/17 08:07; Start 07/20/17 at 09:00; Stop 07/23/17 at 08:59; Status DC Sertraline HCl (Zoloft) 50 mg DAILY PO Last administered on 07/24/17 08:34; Start 07/23/17 at 09:00 Donepezil HCl (Aricept) 23 mg QHS PO Last administered on 07/24/17 20:09; Start 07/22/17 at 21:00 Active Scripts Active Reported Melatonin 5 Mg Tablet 5 Mg PO HS Namenda (Memantine Hcl) 10 Mg Tablet 10 Mg PO BID Krill Oil 1,000 Mg Softgel (Krill/Om-3/Dha/Epa/Phospho/Ast) 1 Each Capsule 1 Cap PO DAILY Donepezil Hcl 10 Mg Tablet 10 Mg PO HS Vitamin B-12 (Cyanocobalamin (Vitamin B-12)) 1,000 Mcg Tablet 1,000 Mcg PO DAILY Calcium 500 + Vit D 400 Tablet (Calcium Carbonate/Vitamin D3) 1 Each Tablet 1 Tab PO DAILY Ascorbic Acid 250 Mg Tablet 250 Mg PO DAILY I have reviewed the current psychotropics carefully including drug interactions. Risk benefit ratio favors no change other than as noted in my dictated progress note. 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
--- NOTE | 2017-07-24 20:53 | PN ---
DATE: 07/22/2017 This late entry 07/22/2017 covers elements not covered in my initial note 07/22/2017. Met with the patient evening of 07/22/2017. Met with the patient in his room. He was able to do serial 7's for 4 steps. He is aware of the date. He has been swallowing his medications without problems, agitated in the morning with another demented patient, did redirect. No CV, , pulmonary, eye, ENT system symptoms on review. Reliability varies. MENTAL STATUS EXAM: Oriented to himself and situation. Speech has some latency, coherent. Abstraction fair, computation impaired, but he was able to do 4-step serial 7's. No suicidal or homicidal ideation. He has not been aggressive. Attention span short. Language function intact. IMPRESSION: Unchanged from initial note. PLAN: Continue current psychotropics. Increase Aricept to 23 mg a day. MAN Pardeep SHETTY MD DR: TANIYA/david JOB#: [id number] / [id number]
[2017-07-25 06:06] VITALS: BP 133/81
[2017-07-25] MEDS: MEMANTINE 10 MG TABLET. PO SCH ×2 (08:08→19:54)
[2017-07-25] MEDS: ASCORBIC ACID 500 MG TABLET PO SCH (08:08)
[2017-07-25] MEDS: CALCIUM CARB/VIT D3 500/200 TABLET PO SCH (08:08)
[2017-07-25] MEDS: SERTRALINE 50 MG TABLET. PO SCH (08:08)
[2017-07-25] MEDS: CYANOCOBALAMIN (VITAMIN B-12) 1,000 MCG TABLET. PO SCH (08:08)
--- NOTE | 2017-07-25 09:18 | PN ---
DATE: 07/23/2017 PSYCHIATRIC PROGRESS NOTE This is a late entry 07/23/2017, covers elements not covered in my initial note 07/23/2017. SUBJECTIVE: I met with the patient the evening of 07/23/2017. The patient did reasonably well previous night, slept 7-1/4 hours, talked at length to nursing staff about having worked at the [employer] in [place]. REVIEW OF SYSTEMS: No CV, , pulmonary, eye system symptoms on review. MENTAL STATUS EXAM: Oriented to himself and situation. Speech is coherent, met with him in his room. Abstraction fair, computation reasonable, language function intact. Attention span somewhat short. He spelled world forward no error, backward one error and after 4 tries was able to correct this as well. No suicidal or homicidal ideation, remains somewhat anxious, dysphoric. Attention span short. Language function intact. IMPRESSION: Unchanged from initial note. PLAN: Continue psychotropics mentioned in my initial note. Increase Zoloft to 50 mg a day. MAN Pardeep SHETTY MD DR: TANIYA/david JOB#: [id number] / [id number]
--- NOTE | 2017-07-25 14:03 | PN ---
DATE: 07/24/2017 PSYCHIATRIC PROGRESS NOTE This note covers elements not covered in my initial note 07/24/2017. SUBJECTIVE: I met with the patient in the evening in his room at length. He is quite irritable that he is not getting shower at the time he wanted it. Nursing staff have been informed of this and they are addressing it. REVIEW OF SYSTEMS: No CV, , pulmonary, eye, ENT system symptoms on review. MENTAL STATUS EXAM: Oriented to himself and situation. Speech is coherent, somewhat pressured. Abstraction fair, computation impaired, language function intact, attention span short. Mood and affect somewhat anxious, labile. LABORATORIES: Reviewed. 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 PLAN: Continue current psychotropics, Aricept, Namenda together with Zoloft and melatonin. MAN Pardeep SHETTY MD DR: TANIYA/david JOB#: [id number] / [id number]
[2017-07-25 16:12] VITALS: BP 129/74
[2017-07-25] MEDS: DONEPEZIL 23 MG TABLET PO SCH (19:54)
--- NOTE | 2017-07-25 20:39 | PDOC ---
Exam Note: Zafar Note: Please also refer to the separate dictated note~for this date of service dictated separately.~Patient seen individually. Discussed the patient with Nursing staff reviewed the chart.~Reviewed interim history and current functioning. Reviewed vital signs,~Labs/ Radiology~and current medications noted below. Continue current treatment with the changes noted in the dictated addendum note Assessment: Vital Signs: Vital Signs Date Time Temp Pulse Resp B/P (MAP) Pulse Ox O2 Delivery O2 Flow Rate FiO2 07/25/17 16:12 97.9 76 18 129/74 (92) 97 07/22/17 05:34 Room Air I&O Intake and Output 07/25/17 07:00 Intake Total 1320 ml Balance 1320 ml Intake Oral 1320 ml Current Medications: Meds: Current Medications Sodium Chloride 1,000 ml @ 1,000 mls/hr 1X ONCE IV Last administered on at 23:21; Start 07/18/17 at 23:30; Stop 07/19/17 at 00:30; Status DC Sodium Chloride 1,000 ml @ 1,000 mls/hr 1X ONCE IV Last administered on at 00:49; Start 07/19/17 at 00:15; Stop 07/19/17 at 01:14; Status DC Acetaminophen (Tylenol) 650 mg PRN Q6HRS PRN PO PAIN / TEMP; Start 07/19/17 at 01:45 Multi-Ingredient Ointment (Analgesic [place]) 1 rita PRN QID PRN TP MUSCLE PAIN; Start 07/19/17 at 01:45 Al Hydroxide/Mg Hydroxide (Mylanta Plus Xs) 15 ml PRN AFTMEALHC PRN PO DYSPEPSIA; Start 07/19/17 at 01:45 Magnesium Hydroxide (Milk Of Magnesia) 2,400 mg PRN QHS PRN PO CONSTIPATION; Start 07/19/17 at 01:45 Donepezil HCl (Aricept) 10 mg QHS PO Last administered on 07/21/17at 20:39; Start 07/19/17 at 21:00; Stop 07/22/17 at 19:52; Status DC Melatonin 3 mg PRN QHS PRN PO INSOMNIA Last administered on 07/19/17at 20:20; Start 07/19/17 at 02:00 Memantine (Namenda) 10 mg BID PO Last administered on 07/25/17 19:54; Start at 09:00 Cyanocobalamin (Vitamin B-12) 1,000 mcg DAILY PO Last administered on at 08:08; Start 07/19/17 at 09:00 Ascorbic Acid (Vitamin C) 250 mg DAILY PO Last administered on 07/25/17 08:08 ; Start 07/19/17 at 09:00 Calcium/Vitamin D (Oscal D 500mg/ 200uts) 1 tab DAILYWBKFT PO Last administered on 07/25/17 08:08; Start 07/19/17 at 08:00 Fish Oil (Fish Oil) 1,000 mg DAILY PO Last administered on 07/22/17at 08:06; Start 07/19/17 at 09:00; Stop 07/22/17 at 19:06; Status DC Sertraline HCl (Zoloft) 25 mg DAILY PO Last administered on 07/22/17 08:07; Start 07/20/17 at 09:00; Stop 07/23/17 at 08:59; Status DC Sertraline HCl (Zoloft) 50 mg DAILY PO Last administered on 07/25/17at 08:08; Start 07/23/17 at 09:00 Donepezil HCl (Aricept) 23 mg QHS PO Last administered on 07/25/17at 19:54; Start 07/22/17 at 21:00 Active Scripts Active Reported Melatonin 5 Mg Tablet 5 Mg PO HS Namenda (Memantine Hcl) 10 Mg Tablet 10 Mg PO BID Krill Oil 1,000 Mg Softgel (Krill/Om-3/Dha/Epa/Phospho/Ast) 1 Each Capsule 1 Cap PO DAILY Donepezil Hcl 10 Mg Tablet 10 Mg PO HS Vitamin B-12 (Cyanocobalamin (Vitamin B-12)) 1,000 Mcg Tablet 1,000 Mcg PO DAILY Calcium 500 + Vit D 400 Tablet (Calcium Carbonate/Vitamin D3) 1 Each Tablet 1 Tab PO DAILY Ascorbic Acid 250 Mg Tablet 250 Mg PO DAILY I have reviewed the current psychotropics carefully including drug interactions. Risk benefit ratio favors no change other than as noted in my dictated progress note. 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
--- NOTE | 2017-07-26 01:43 | PN ---
DATE: 07/25/2017 SUBJECTIVE: The patient was seen today, met with the staff, chart reviewed and also covering for Dr. Lundberg. Staff reports fluctuating symptoms mostly in the evening at night, becomes delusional, somewhat agitated. The patient admits that he has visions of [place] and admits at times he gets confused, not able to separate reality and sleep and dreams. The patient also admits to having periods of agitation. The patient is aware of his surroundings. The patient is able to verbalize his needs. Staff reports no major events. No falls. OBSERVATION: VITAL SIGNS: Temperature 97.9, blood pressure 133/81, pulse 70, respirations 16, O2 sat 96%. Slept about 8 hours last night. The patient's appetite is fair. The patient is able to walk fairly steady. The patient still has some racing thoughts, delusional thinking and some flight of ideas. The patient is not presenting with any side effects to the medications. The patient also having difficulty with short-term memory, forgetful. He is confused. The patient was a resident at [facility] in [place]. No history of alcohol or substance abuse in the past. LABORATORY DATA: The patient's lab reviewed, which were all within the normal range except for slight increase in BUN and creatinine ratio. Glucose level was 147, total bilirubin 1.5. MEDICATIONS: The patient's medications reviewed. Currently on Zoloft 50 mg daily, Aricept 23 mg at night, Namenda 10 mg b.i.d. The patient apparently doing fairly well with this combination. ASSESSMENT: 1. Major depressive disorder, single, moderate. 2. Generalized anxiety disorder. 3. Vascular dementia, [id number]. PLAN: Continue with the current treatment. NANCY BALDWIN MD DR: LI/david JOB#: [id number] / [id number]
[2017-07-26] MEDS: CYANOCOBALAMIN (VITAMIN B-12) 1,000 MCG TABLET. PO SCH (08:54)
[2017-07-26] MEDS: SERTRALINE 50 MG TABLET. PO SCH (08:54)
[2017-07-26] MEDS: ASCORBIC ACID 500 MG TABLET PO SCH (08:55)
[2017-07-26] MEDS: CALCIUM CARB/VIT D3 500/200 TABLET PO SCH (08:55)
[2017-07-26] MEDS: MEMANTINE 10 MG TABLET. PO SCH ×2 (08:55→19:40)
[2017-07-26 11:34] VITALS: BP 129/74
[2017-07-26 16:34] VITALS: BP 110/66
[2017-07-26] MEDS: DONEPEZIL 23 MG TABLET PO SCH (19:40)
[2017-07-27 06:50] VITALS: BP 134/77
[2017-07-27] MEDS: SERTRALINE 50 MG TABLET. PO SCH (08:49)
[2017-07-27] MEDS: MEMANTINE 10 MG TABLET. PO SCH ×2 (08:49→19:19)
[2017-07-27] MEDS: CYANOCOBALAMIN (VITAMIN B-12) 1,000 MCG TABLET. PO SCH (08:49)
[2017-07-27] MEDS: ASCORBIC ACID 500 MG TABLET PO SCH (08:49)
[2017-07-27] MEDS: CALCIUM CARB/VIT D3 500/200 TABLET PO SCH (08:49)
[2017-07-27 16:20] VITALS: BP 108/66
[2017-07-27] MEDS: DONEPEZIL 23 MG TABLET PO SCH (19:19)
--- NOTE | 2017-07-27 19:45 | PDOC ---
Exam Note: Zafar Note: Late entry for date of service July 26, 2017. Please also refer to the separate dictated note~for this date of service dictated separately.~Patient seen individually. Discussed the patient with Nursing staff reviewed the chart.~ Reviewed interim history and current functioning. Reviewed vital signs,~Labs/ Radiology~and current medications noted below. Continue current treatment with the changes noted in the dictated addendum note Assessment: Vital Signs: VS - Last 72 Hours, by Label Date Time Temp Pulse Resp B/P (MAP) Pulse Ox O2 Delivery O2 Flow Rate FiO2 07/27/17 16:20 98.3 73 16 108/66 (80) 96 07/27/17 06:50 78 16 134/77 (96) 94 07/26/17 16:34 97.9 69 20 110/66 (81) 95 Room Air 07/26/17 11:34 97.9 76 129/74 (92) 97 07/25/17 16:12 97.9 76 18 129/74 (92) 97 07/25/17 06:06 97.9 70 16 133/81 (98) 96 Vital Signs Date Time Temp Pulse Resp B/P (MAP) Pulse Ox O2 Delivery O2 Flow Rate FiO2 07/27/17 16:20 98.3 73 16 108/66 (80) 96 07/26/17 16:34 Room Air I&O Intake and Output 07/27/17 07:00 Intake Total 1140 ml Balance 1140 ml Intake Oral 1140 ml # Bowel Movements 1 Current Medications: Meds: Current Medications Sodium Chloride 1,000 ml @ 1,000 mls/hr 1X ONCE IV Last administered on at 23:21; Start 07/18/17 at 23:30; Stop 07/19/17 at 00:30; Status DC Sodium Chloride 1,000 ml @ 1,000 mls/hr 1X ONCE IV Last administered on at 00:49; Start 07/19/17 at 00:15; Stop 07/19/17 at 01:14; Status DC Acetaminophen (Tylenol) 650 mg PRN Q6HRS PRN PO PAIN / TEMP; Start 07/19/17 at 01:45 Multi-Ingredient Ointment (Analgesic [place]) 1 rita PRN QID PRN TP MUSCLE PAIN; Start 07/19/17 at 01:45 Al Hydroxide/Mg Hydroxide (Mylanta Plus Xs) 15 ml PRN AFTMEALHC PRN PO DYSPEPSIA; Start 07/19/17 at 01:45 Magnesium Hydroxide (Milk Of Magnesia) 2,400 mg PRN QHS PRN PO CONSTIPATION; Start 07/19/17 at 01:45 Donepezil HCl (Aricept) 10 mg QHS PO Last administered on 07/21/17at 20:39; Start 07/19/17 at 21:00; Stop 07/22/17 at 19:52; Status DC Melatonin 3 mg PRN QHS PRN PO INSOMNIA Last administered on 07/19/17 20:20; Start 07/19/17 at 02:00 Memantine (Namenda) 10 mg BID PO Last administered on 07/27/17 19:19; Start at 09:00 Cyanocobalamin (Vitamin B-12) 1,000 mcg DAILY PO Last administered on 08:49; Start 07/19/17 at 09:00 Ascorbic Acid (Vitamin C) 250 mg DAILY PO Last administered on 07/27/17 08:49 ; Start 07/19/17 at 09:00 Calcium/Vitamin D (Oscal D 500mg/ 200uts) 1 tab DAILYWBKFT PO Last administered on 07/27/17 08:49; Start 07/19/17 at 08:00 Fish Oil (Fish Oil) 1,000 mg DAILY PO Last administered on 07/22/17 08:06; Start 07/19/17 at 09:00; Stop 07/22/17 at 19:06; Status DC Sertraline HCl (Zoloft) 25 mg DAILY PO Last administered on 07/22/17 08:07; Start 07/20/17 at 09:00; Stop 07/23/17 at 08:59; Status DC Sertraline HCl (Zoloft) 50 mg DAILY PO Last administered on 07/27/17 08:49; Start 07/23/17 at 09:00 Donepezil HCl (Aricept) 23 mg QHS PO Last administered on 07/27/17 19:19; Start 07/22/17 at 21:00 Active Scripts Active Reported Melatonin 5 Mg Tablet 5 Mg PO HS Namenda (Memantine Hcl) 10 Mg Tablet 10 Mg PO BID Krill Oil 1,000 Mg Softgel (Krill/Om-3/Dha/Epa/Phospho/Ast) 1 Each Capsule 1 Cap PO DAILY Donepezil Hcl 10 Mg Tablet 10 Mg PO HS Vitamin B-12 (Cyanocobalamin (Vitamin B-12)) 1,000 Mcg Tablet 1,000 Mcg PO DAILY Calcium 500 + Vit D 400 Tablet (Calcium Carbonate/Vitamin D3) 1 Each Tablet 1 Tab PO DAILY Ascorbic Acid 250 Mg Tablet 250 Mg PO DAILY I have reviewed the current psychotropics carefully including drug interactions. Risk benefit ratio favors no change other than as noted in my dictated progress note. Diagnosis: Problems: (1) Prerenal azotemia (2) Mild dehydration (3) Aggressive behavior of adult (4) Anxiety disorder (5) Dementia in Alzheimer's disease with depression (6) Dementia, vascular, with depression (7) Impulse control disorder (8) Mild cognitive impairment WILLOW SHETTY MD July 27, 2017 19:45
--- NOTE | 2017-07-27 20:24 | PDOC ---
Exam Note: Zafar Note: Please also refer to the separate dictated note~for this date of service dictated separately.~Patient seen individually. Discussed the patient with Nursing staff reviewed the chart.~Reviewed interim history and current functioning. Reviewed vital signs,~Labs/ Radiology~and current medications noted below. Continue current treatment with the changes noted in the dictated addendum note Assessment: Vital Signs: Vital Signs Date Time Temp Pulse Resp B/P (MAP) Pulse Ox O2 Delivery O2 Flow Rate FiO2 07/27/17 16:20 98.3 73 16 108/66 (80) 96 07/26/17 16:34 Room Air I&O Intake and Output 07/27/17 07:00 Intake Total 1140 ml Balance 1140 ml Intake Oral 1140 ml # Bowel Movements 1 Current Medications: Meds: Current Medications Sodium Chloride 1,000 ml @ 1,000 mls/hr 1X ONCE IV Last administered on at 23:21; Start 07/18/17 at 23:30; Stop 07/19/17 at 00:30; Status DC Sodium Chloride 1,000 ml @ 1,000 mls/hr 1X ONCE IV Last administered on at 00:49; Start 07/19/17 at 00:15; Stop 07/19/17 at 01:14; Status DC Acetaminophen (Tylenol) 650 mg PRN Q6HRS PRN PO PAIN / TEMP; Start 07/19/17 at 01:45 Multi-Ingredient Ointment (Analgesic [place]) 1 rita PRN QID PRN TP MUSCLE PAIN; Start 07/19/17 at 01:45 Al Hydroxide/Mg Hydroxide (Mylanta Plus Xs) 15 ml PRN AFTMEALHC PRN PO DYSPEPSIA; Start 07/19/17 at 01:45 Magnesium Hydroxide (Milk Of Magnesia) 2,400 mg PRN QHS PRN PO CONSTIPATION; Start 07/19/17 at 01:45 Donepezil HCl (Aricept) 10 mg QHS PO Last administered on 07/21/17at 20:39; Start 07/19/17 at 21:00; Stop 07/22/17 at 19:52; Status DC Melatonin 3 mg PRN QHS PRN PO INSOMNIA Last administered on 07/19/17at 20:20; Start 07/19/17 at 02:00 Memantine (Namenda) 10 mg BID PO Last administered on 07/27/17 19:19; Start at 09:00 Cyanocobalamin (Vitamin B-12) 1,000 mcg DAILY PO Last administered on 08:49; Start 07/19/17 at 09:00 Ascorbic Acid (Vitamin C) 250 mg DAILY PO Last administered on 07/27/17 08:49 ; Start 07/19/17 at 09:00 Calcium/Vitamin D (Oscal D 500mg/ 200uts) 1 tab DAILYWBKFT PO Last administered on 07/27/17 08:49; Start 07/19/17 at 08:00 Fish Oil (Fish Oil) 1,000 mg DAILY PO Last administered on 07/22/17 08:06; Start 07/19/17 at 09:00; Stop 07/22/17 at 19:06; Status DC Sertraline HCl (Zoloft) 25 mg DAILY PO Last administered on 07/22/17 08:07; Start 07/20/17 at 09:00; Stop 07/23/17 at 08:59; Status DC Sertraline HCl (Zoloft) 50 mg DAILY PO Last administered on 07/27/17 08:49; Start 07/23/17 at 09:00 Donepezil HCl (Aricept) 23 mg QHS PO Last administered on 07/27/17 19:19; Start 07/22/17 at 21:00 Active Scripts Active Reported Melatonin 5 Mg Tablet 5 Mg PO HS Namenda (Memantine Hcl) 10 Mg Tablet 10 Mg PO BID Krill Oil 1,000 Mg Softgel (Krill/Om-3/Dha/Epa/Phospho/Ast) 1 Each Capsule 1 Cap PO DAILY Donepezil Hcl 10 Mg Tablet 10 Mg PO HS Vitamin B-12 (Cyanocobalamin (Vitamin B-12)) 1,000 Mcg Tablet 1,000 Mcg PO DAILY Calcium 500 + Vit D 400 Tablet (Calcium Carbonate/Vitamin D3) 1 Each Tablet 1 Tab PO DAILY Ascorbic Acid 250 Mg Tablet 250 Mg PO DAILY I have reviewed the current psychotropics carefully including drug interactions. Risk benefit ratio favors no change other than as noted in my dictated progress note. 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
--- NOTE | 2017-07-27 23:12 | PN ---
DATE: 07/26/2017 PSYCHIATRIC PROGRESS NOTE This late entry 07/26/2017 covers elements not covered in my initial note of 07/26/2017. SUBJECTIVE: Met with the patient in evening of 07/26/2017. The patient slept 8 hours previous evening. 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 Remote memory is fair, recent. He is showing some improvement. REVIEW OF SYSTEMS: No CV, , pulmonary, eye, ENT system symptoms on review. MENTAL STATUS EXAM: The patient is oriented to himself, situation. Speech has some latency, coherent. Abstraction is fair, computation, mild impairment. Attention span is improving. Mood and affect is improved. No suicidal or homicidal ideation. He has not been aggressive. LABORATORY DATA: Reviewed. IMPRESSION: Major neurocognitive disorder, early Alzheimer, vascular with depression, in partial remission; anxiety disorder, unspecified. PLAN: Continue psychotropics mentioned in my initial note. MAN Pardeep SHETTY MD DR: TANIYA/david JOB#: [id number] / [id number]
[2017-07-28 05:50] VITALS: BP 116/61
[2017-07-28] MEDS: CYANOCOBALAMIN (VITAMIN B-12) 1,000 MCG TABLET. PO SCH (08:24)
[2017-07-28] MEDS: SERTRALINE 50 MG TABLET. PO SCH (08:25)
[2017-07-28] MEDS: ASCORBIC ACID 500 MG TABLET PO SCH (08:25)
[2017-07-28] MEDS: CALCIUM CARB/VIT D3 500/200 TABLET PO SCH (08:25)
[2017-07-28] MEDS: MEMANTINE 10 MG TABLET. PO SCH ×2 (08:25→19:20)
[2017-07-28] MEDS ORDERED: traZODone 50 MG TABLET. PO PRN (11:30)
[2017-07-28 15:59] VITALS: BP 109/61
[2017-07-28] MEDS: DONEPEZIL 23 MG TABLET PO SCH (19:20)
[2017-07-28] MEDS: MELATONIN 3 MG TABLET PO PRN (19:20)
--- NOTE | 2017-07-28 20:41 | PDOC ---
Exam Note: Zafar Note: Please also refer to the separate dictated note~for this date of service dictated separately.~Patient seen individually. Discussed the patient with Nursing staff reviewed the chart.~Reviewed interim history and current functioning. Reviewed vital signs,~Labs/ Radiology~and current medications noted below. Continue current treatment with the changes noted in the dictated addendum note Assessment: Vital Signs: Vital Signs Date Time Temp Pulse Resp B/P (MAP) Pulse Ox O2 Delivery O2 Flow Rate FiO2 07/28/17 15:59 98.4 74 18 109/61 (77) 97 07/26/17 16:34 Room Air I&O Intake and Output 07/28/17 07:00 Intake Total 400 ml Balance 400 ml Intake Oral 400 ml Current Medications: Meds: Current Medications Sodium Chloride 1,000 ml @ 1,000 mls/hr 1X ONCE IV Last administered on at 23:21; Start 07/18/17 at 23:30; Stop 07/19/17 at 00:30; Status DC Sodium Chloride 1,000 ml @ 1,000 mls/hr 1X ONCE IV Last administered on at 00:49; Start 07/19/17 at 00:15; Stop 07/19/17 at 01:14; Status DC Acetaminophen (Tylenol) 650 mg PRN Q6HRS PRN PO PAIN / TEMP; Start 07/19/17 at 01:45 Multi-Ingredient Ointment (Analgesic [place]) 1 rita PRN QID PRN TP MUSCLE PAIN; Start 07/19/17 at 01:45 Al Hydroxide/Mg Hydroxide (Mylanta Plus Xs) 15 ml PRN AFTMEALHC PRN PO DYSPEPSIA; Start 07/19/17 at 01:45 Magnesium Hydroxide (Milk Of Magnesia) 2,400 mg PRN QHS PRN PO CONSTIPATION; Start 07/19/17 at 01:45 Donepezil HCl (Aricept) 10 mg QHS PO Last administered on 07/21/17at 20:39; Start 07/19/17 at 21:00; Stop 07/22/17 at 19:52; Status DC Melatonin 3 mg PRN QHS PRN PO INSOMNIA Last administered on 07/28/17at 19:20; Start 07/19/17 at 02:00 Memantine (Namenda) 10 mg BID PO Last administered on 07/28/17 19:20; Start at 09:00 Cyanocobalamin (Vitamin B-12) 1,000 mcg DAILY PO Last administered on 08:24; Start 07/19/17 at 09:00 Ascorbic Acid (Vitamin C) 250 mg DAILY PO Last administered on 07/28/17 08:25 ; Start 07/19/17 at 09:00 Calcium/Vitamin D (Oscal D 500mg/ 200uts) 1 tab DAILYWBKFT PO Last administered on 07/28/17 08:25; Start 07/19/17 at 08:00 Fish Oil (Fish Oil) 1,000 mg DAILY PO Last administered on 07/22/17 08:06; Start 07/19/17 at 09:00; Stop 07/22/17 at 19:06; Status DC Sertraline HCl (Zoloft) 25 mg DAILY PO Last administered on 07/22/17 08:07; Start 07/20/17 at 09:00; Stop 07/23/17 at 08:59; Status DC Sertraline HCl (Zoloft) 50 mg DAILY PO Last administered on 07/28/17 08:25; Start 07/23/17 at 09:00 Donepezil HCl (Aricept) 23 mg QHS PO Last administered on 07/28/17 19:20; Start 07/22/17 at 21:00 Trazodone HCl (Desyrel) 50 mg PRN QHS PRN PO INSOMNIA, MAY REPEAT X1; Start at 11:30 Active Scripts Active Reported Melatonin 5 Mg Tablet 5 Mg PO HS Namenda (Memantine Hcl) 10 Mg Tablet 10 Mg PO BID Krill Oil 1,000 Mg Softgel (Krill/Om-3/Dha/Epa/Phospho/Ast) 1 Each Capsule 1 Cap PO DAILY Donepezil Hcl 10 Mg Tablet 10 Mg PO HS Vitamin B-12 (Cyanocobalamin (Vitamin B-12)) 1,000 Mcg Tablet 1,000 Mcg PO DAILY Calcium 500 + Vit D 400 Tablet (Calcium Carbonate/Vitamin D3) 1 Each Tablet 1 Tab PO DAILY Ascorbic Acid 250 Mg Tablet 250 Mg PO DAILY I have reviewed the current psychotropics carefully including drug interactions. Risk benefit ratio favors no change other than as noted in my dictated progress note. Diagnosis: Problems: (1) Prerenal azotemia (2) Mild dehydration (3) Aggressive behavior of adult (4) Anxiety disorder (5) Dementia in Alzheimer's disease with depression (6) Dementia, vascular, with depression (7) Impulse control disorder (8) Mild cognitive impairment WILLOW SHETTY MD July 28, 2017 20:41
[2017-07-29] MEDS ORDERED: ACET325T9 PO (01:47)
[2017-07-29] MEDS ORDERED: CALC-157 PO (01:48)
[2017-07-29] MEDS ORDERED: DONE10TA61 PO (01:52)
[2017-07-29] MEDS ORDERED: MAG30ORA2 PO (01:54)
[2017-07-29] MEDS ORDERED: MAGN2400 PO (01:55)
[2017-07-29] MEDS ORDERED: MELA3TAB2 PO (01:55)
[2017-07-29] MEDS ORDERED: METH29OI TP ×2 (01:56→01:57)
[2017-07-29] MEDS ORDERED: SERT50TA PO (01:58)
[2017-07-29] MEDS ORDERED: TRAZ50TA15 PO (01:59)
[2017-07-29 05:43] VITALS: BP 127/78
[2017-07-29] MEDS: MEMANTINE 10 MG TABLET. PO SCH (09:58)
[2017-07-29] MEDS: ASCORBIC ACID 500 MG TABLET PO SCH (09:58)
[2017-07-29] MEDS: CALCIUM CARB/VIT D3 500/200 TABLET PO SCH (09:58)
[2017-07-29] MEDS: CYANOCOBALAMIN (VITAMIN B-12) 1,000 MCG TABLET. PO SCH (09:59)
[2017-07-29] MEDS: SERTRALINE 50 MG TABLET. PO SCH (09:59)
--- NOTE | 2017-07-29 18:48 | PDOC ---
Exam Note: Zafar Note: Please also refer to the separate dictated note~for this date of service dictated separately.~Patient seen individually. Discussed the patient with Nursing staff reviewed the chart.~Reviewed interim history and current functioning. Reviewed vital signs,~Labs/ Radiology~and current medications noted below. Continue current treatment with the changes noted in the dictated addendum note Assessment: Vital Signs: Vital Signs Date Time Temp Pulse Resp B/P (MAP) Pulse Ox O2 Delivery O2 Flow Rate FiO2 07/29/17 05:43 97.7 88 15 127/78 (94) 97 Room Air I&O Intake and Output 07/29/17 07:00 Intake Total 1200 ml Balance 1200 ml Intake Oral 1200 ml # Bowel Movements 3 Current Medications: Meds: Current Medications Sodium Chloride 1,000 ml @ 1,000 mls/hr 1X ONCE IV Last administered on at 23:21; Start 07/18/17 at 23:30; Stop 07/19/17 at 00:30; Status DC Sodium Chloride 1,000 ml @ 1,000 mls/hr 1X ONCE IV Last administered on at 00:49; Start 07/19/17 at 00:15; Stop 07/19/17 at 01:14; Status DC Acetaminophen (Tylenol) 650 mg PRN Q6HRS PRN PO PAIN / TEMP; Start 07/19/17 at 01:45; Stop 07/29/17 at 13:38; Status DC Multi-Ingredient Ointment (Analgesic [place]) 1 mata PRN QID PRN TP MUSCLE PAIN; Start 07/19/17 at 01:45; Stop 07/29/17 at 13:38; Status DC Al Hydroxide/Mg Hydroxide (Mylanta Plus Xs) 15 ml PRN AFTMEALHC PRN PO DYSPEPSIA; Start 07/19/17 at 01:45; Stop 07/29/17 at 13:38; Status DC Magnesium Hydroxide (Milk Of Magnesia) 2,400 mg PRN QHS PRN PO CONSTIPATION; Start 07/19/17 at 01:45; Stop 07/29/17 at 13:38; Status DC Donepezil HCl (Aricept) 10 mg QHS PO Last administered on 07/21/17at 20:39; Start 07/19/17 at 21:00; Stop 07/22/17 at 19:52; Status DC Melatonin 3 mg PRN QHS PRN PO INSOMNIA Last administered on 07/28/17at 19:20; Start 07/19/17 at 02:00; Stop 07/29/17 at 13:38; Status DC Memantine (Namenda) 10 mg BID PO Last administered on 07/29/17 09:58; Start at 09:00; Stop 07/29/17 at 13:38; Status DC Cyanocobalamin (Vitamin B-12) 1,000 mcg DAILY PO Last administered on at 09:59; Start 07/19/17 at 09:00; Stop 07/29/17 at 13:38; Status DC Ascorbic Acid (Vitamin C) 250 mg DAILY PO Last administered on 07/29/17at 09:58 ; Start 07/19/17 at 09:00; Stop 07/29/17 at 13:38; Status DC Calcium/Vitamin D (Oscal D 500mg/ 200uts) 1 tab DAILYWBKFT PO Last administered on 07/29/17at 09:58; Start 07/19/17 at 08:00; Stop 07/29/17 at 13:38 ; Status DC Fish Oil (Fish Oil) 1,000 mg DAILY PO Last administered on 07/22/17at 08:06; Start 07/19/17 at 09:00; Stop 07/22/17 at 19:06; Status DC Sertraline HCl (Zoloft) 25 mg DAILY PO Last administered on 07/22/17at 08:07; Start 07/20/17 at 09:00; Stop 07/23/17 at 08:59; Status DC Sertraline HCl (Zoloft) 50 mg DAILY PO Last administered on 07/29/17at 09:59; Start 07/23/17 at 09:00; Stop 07/29/17 at 13:38; Status DC Donepezil HCl (Aricept) 23 mg QHS PO Last administered on 07/28/17at 19:20; Start 07/22/17 at 21:00; Stop 07/29/17 at 13:38; Status DC Trazodone HCl (Desyrel) 50 mg PRN QHS PRN PO INSOMNIA, MAY REPEAT X1; Start at 11:30; Stop 07/29/17 at 13:38; Status DC Active Scripts Active Reported Trazodone Hcl 50 Mg Tablet 50 Mg PO PRN QHS PRN Zoloft (Sertraline Hcl) 50 Mg Tablet 50 Mg PO DAILY Analgesic [place] (Methyl Salicylate/Menthol) 28 Gm Oint...g. 1 Mata TP PRN QID PRN Melatonin 3 Mg Tablet 3 Mg PO PRN QHS PRN Milk Of Magnesia (Magnesium Hydroxide) 2,400 Mg/10 Ml Oral.susp 2,400 Mg PO PRN QHS PRN Mag-Al Plus Xs Suspension (Mag Hydrox/Al Hydrox/Simeth) 30 Ml Oral.susp 15 Ml PO PRN AFTMEALHC PRN Aricept (Donepezil Hcl) 10 Mg Tablet 23 Mg PO QHS Calcium 500 + Vit D 200 Tablet (Calcium Carbonate/Vitamin D3) 1 Each Tablet 1 Each PO DAILYWBKFT Tylenol (Acetaminophen) 325 Mg Tablet 650 Mg PO PRN Q6HRS PRN Namenda (Memantine Hcl) 10 Mg Tablet 10 Mg PO BID Vitamin B-12 (Cyanocobalamin (Vitamin B-12)) 1,000 Mcg Tablet 1,000 Mcg PO DAILY Ascorbic Acid 250 Mg Tablet 250 Mg PO DAILY I have reviewed the current psychotropics carefully including drug interactions. Risk benefit ratio favors no change other than as noted in my dictated progress note. Diagnosis: Problems: (1) Major depressive disorder, recurrent episode (2) Mild cognitive impairment (3) Impulse control disorder (4) Anxiety disorder WILLOW SHETTY MD July 29, 2017 18:47
--- NOTE | 2017-07-29 20:55 | PN ---
DATE: 07/27/2017 This is a late entry, 07/27/2017, covers the elements not covered in my initial note, 07/27/2017. SUBJECTIVE: I met with the patient in the evening. The patient slept 7-3/4 hours. Discussed with nursing staff and psych social worker staff, social service staff, who called me earlier in the day. They had some feedback from the visitors from the [facility] that who felt the patient was somewhat weak. We will go ahead and start physical therapy to help with this. In the meantime, he remains somewhat withdrawn, but not angry, aggressive. REVIEW OF SYSTEMS: No CV, , pulmonary, eye system symptoms on review. MENTAL STATUS EXAM: Oriented to himself and situation. Speech is coherent, abstraction fair, computation impaired, language function intact. Mood and affect still somewhat withdrawn, but less labile, less angry. LABORATORY DATA: Reviewed. IMPRESSION: Unchanged from initial note. PLAN: No change from the initial note. MAN Pardeep SHETTY MD DR: TANIYA/david JOB#: [id number] / [id number]
--- NOTE | 2017-07-29 22:46 | PN ---
DATE: 07/28/2017 This late entry 07/28/2017 covers elements not covered in my initial note 07/28/2017. SUBJECTIVE: Met with the patient in the evening. The patient was staffed with the entire treatment team morning of 07/28/2017. Has brother Dm, who is a nurse at [facility] [employer], attended the conference, and we had a lengthy discussion about the patient's diagnosis, progress, current medications. The patient slept 4-1/4 hours and we will add trazodone 50 mg at bedtime p.r.n., july repeat x 1 for insomnia. REVIEW OF SYSTEMS: No CV, , pulmonary, eye, ENT system symptoms on review. MENTAL STATUS EXAM: Oriented to himself and situation. Speech has some latency, coherent. Abstraction fair, computation impaired, language function intact. Mood and affect showing improvement. LABORATORY DATA: Reviewed. IMPRESSION: Unchanged from initial note. PLAN: Continue current psychotropics mentioned in my initial note. WILLOW SHETTY MD DR: TANIYA/david JOB#: [id number] / [id number]
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
== END 2017-07-29 13:38 | disposition home health service (06) | DRG 885 ==
LOC: ER 20:56 → GEROPSY 07-19 00:57
PROVIDERS: ADMIT Psychiatry & Neurology Psychiatry; ATTEND Psychiatry & Neurology Psychiatry
DX: F33.9 Major depressive disorder, recurrent, unspecified (principal); G30.9 Alzheimer's disease, unspecified; E44.1 Mild protein-calorie malnutrition; F01.51 Vascular dementia, unspecified severity, with behavioral disturbance; E86.0 Dehydration; Z68.1 Body mass index [BMI] 19.9 or less, adult; F02.81 Dementia in other diseases classified elsewhere, unspecified severity, with behavioral disturbance; G47.00 Insomnia, unspecified; F41.1 Generalized anxiety disorder; F63.9 Impulse disorder, unspecified; Z95.0 Presence of cardiac pacemaker; Z90.89 Acquired absence of other organs; Z90.49 Acquired absence of other specified parts of digestive tract; Z88.0 Allergy status to penicillin; Z79.899 Other long term (current) drug therapy
CPT/HCPCS: 36415; 70450; 80048; 80053; 80061; 80076; 81001; 82306; 82607; 83036; 83540; 83550; 83735; 84436; 84443; 84480; 84484; 85025; 86593; 93005; 96360; 92610; 99285-25; J7030